=== PATIENT | female | born 1945 | race Caucasian/White ===

== ENCOUNTER → 2016-06-15 | Outpatient (CLI) | payer MEDICARE, OTHER ==
[~2016-06-15] MED LIST: BRINTELLIX20 PO; CALCIUM 600600 M2 PO; IRON325 M2 PO; LIPITOR20 MG PO; MACROBID 1100 MG/CAP PO; MULTIPLE VITAMI1 CAP PO; PERCOCET 325 MG1 TA2 PO; PRAVACHOL 20MG20 MG PO; PROVIGIL200 MG PO; REMERON 15M15 MG/TA1 PO; SENNA1 TAB PO; THERACRAN650 MG PO; WELLBUTRIN XL300 M1 PO; ZOCOR 20MG20 MG PO; ZOLOFT 100MG100 MG PO
== END ==
LOC: MC.RAD 09:47
DX: Z12.31 Encounter for screening mammogram for malignant neoplasm of breast (principal); Z80.3 Family history of malignant neoplasm of breast

== ENCOUNTER → 2016-06-16 | Outpatient (CLI) | payer MEDICARE, OTHER ==
[2016-06-16 08:51] LABS: BASO # 0.1 (0.0-0.2); BASO % 0.8 % (0.0-2.0); EOS # 0.1 (0.0-0.7); EOS % 1.8 % (0-4.0); GRAN # 6.2 (1.4-6.5); GRAN % 77.5 % (42.2-75.2); HEMATOCRIT 41.2 % (37.0-47.0); HEMOGLOBIN 13.6 g/dl (12.5-16.0); LYMPH % 11.9 % (20.0-51.0); MEAN CELL VOLUME 94 fl (80.0-100.0); MEAN CORPUSCULAR HEMOGLOBIN 31 pg (27.0-31.0); MEAN CORPUSCULAR HGB CONC 33 g/dl (33.0-37.0); MEAN PLATELET VOLUME 10.4 fl (7.4-10.4); MONO # 0.6 (0.1-0.6); MONO % 7.7 % (1.7-9.3); PLATELET COUNT 382 K/mm3 (130-400); RED BLOOD COUNT 4.37 M/mm3 (4.10-5.30); REDCELL DISTRIBUTION WIDTH-CV 12.8 % (11.5-14.5)
[2016-06-16 09:29] LABS: ADJUSTED CALCIUM 9.4 mg/dL (8.4-10.2); ALBUMIN 4.4 gm/dL (3.5-5.0); BILIRUBIN,TOTAL 0.9 mg/dL (0.0-1.0); CALCIUM 9.7 mg/dL (8.4-10.2); CREATININE, serum 0.56 mg/dL (0.52-1.25); POTASSIUM 4.8 mmol/L (3.4-5.0); TOTAL PROTEIN 7.8 gm/dL (6.4-8.2)
[2016-06-16 09:59] LABS: THYROID STIMULATING HORMONE 1.31 uIU/mL (0.465-4.680)
[2016-06-16 14:41] LABS: PH 6 (5-8); SQUAMOUS EPITHELIAL None Seen /hpf; URINE APPEARANCE Clear; URINE BACTERIA None Seen /hpf; URINE BILIRUBIN Negative (NEGATIVE); URINE BLOOD 1+ (NEGATIVE); URINE COLOR Straw; URINE GLUCOSE Negative (NEGATIVE); URINE KETONE Negative (NEGATIVE); URINE RBC 0-2 /hpf; URINE UROBILINOGEN Negative (NEGATIVE); URINE WBC 0-2 /hpf
== END ==
LOC: COL.LAB 08:25
PROVIDERS: Internal Medicine
DX: Z11.59 Encounter for screening for other viral diseases (principal); R73.01 Impaired fasting glucose; F33.9 Major depressive disorder, recurrent, unspecified; E78.2 Mixed hyperlipidemia

== ENCOUNTER → 2016-06-24 | Outpatient (CLI) | payer MEDICARE, OTHER | LOC: BHSO 15:11 | DX: F41.1 Generalized anxiety disorder (principal) ==

== ENCOUNTER 2016-10-07 14:00 | Outpatient (RCR) | payer MEDICARE, OTHER | END 2016-10-10 | disposition still patient (30) | LOC: WSPT | DX: M54.5 Low back pain (principal); M25.511 Pain in right shoulder | CPT/HCPCS: G8984-GP; G8985-GP ==

== ENCOUNTER 2016-10-21 09:15 | Outpatient (RCR) | payer MEDICARE, OTHER | END 2016-10-21 17:06 | disposition still patient (30) | LOC: WSC 09:15 → WSPT 11:00 → WSC 17:06 | DX: M54.5 Low back pain (principal); M25.511 Pain in right shoulder; Z74.09 Other reduced mobility | CPT/HCPCS: G8984-GP; G8985-GP; G8986-GP ==

== ENCOUNTER → 2016-11-11 | Outpatient (REF) | LOC: WSOH 15:50 | DX: Z01.89 Encounter for other specified special examinations (principal) ==

== ENCOUNTER → 2016-12-14 | Outpatient (REF) | LOC: WSOH 16:26 | DX: Z02.89 Encounter for other administrative examinations (principal) ==

== ENCOUNTER → 2017-02-09 | Outpatient (CLI) | payer MEDICARE, OTHER ==
[2017-02-09 14:15] LABS: BASO # 0.1 (0.0-0.2); BASO % 0.7 % (0.0-2.0); EOS # 0.1 (0.0-0.7); EOS % 1.7 % (0-4.0); GRAN # 5.2 (1.4-6.5); GRAN % 74.6 % (42.2-75.2); HEMATOCRIT 40.9 % (37.0-47.0); HEMOGLOBIN 13.5 g/dl (12.5-16.0); LYMPH # 1.2 (1.2-3.4); LYMPH % 17.3 % (20.0-51.0); MEAN CELL VOLUME 94 fl (80.0-100.0); MEAN CORPUSCULAR HEMOGLOBIN 31 pg (27.0-31.0); MEAN CORPUSCULAR HGB CONC 33 g/dl (33.0-37.0); MEAN PLATELET VOLUME 10.3 fl (7.4-10.4); MONO # 0.4 (0.1-0.6); MONO % 5.6 % (1.7-9.3); PLATELET COUNT 271 K/mm3 (130-400); RED BLOOD COUNT 4.34 M/mm3 (4.10-5.30); WHITE BLOOD COUNT 6.9 K/mm3 (4.8-10.8)
[2017-02-09 14:26] LABS: ADJUSTED CALCIUM 9.3 mg/dL (8.4-10.2); ALBUMIN 4.2 gm/dL (3.5-5.0); BILIRUBIN,TOTAL 0.3 mg/dL (0.0-1.0); CALCIUM 9.5 mg/dL (8.4-10.2); CREATININE, serum 0.7 mg/dL (0.52-1.25); POTASSIUM 4.2 mmol/L (3.4-5.0); TOTAL PROTEIN 7.3 gm/dL (6.4-8.2)
== END ==
LOC: COL.RAD 13:05
PROVIDERS: Internal Medicine
DX: R10.30 Lower abdominal pain, unspecified (principal)

== ENCOUNTER 2017-05-23 08:29 | Day surgery (SDC) | payer MEDICARE, OTHER ==
[~2017-05-23] VITALS: Ht 170.2 cm; Wt 57.7 kg
[~2017-05-23 08:29] MED LIST changes: -IRON325 M2 PO; +NATURAL IRON65 MG PO
[2017-05-23] MEDS ORDERED: CALCIUM CARBON650 M2 PO (08:58)
[2017-05-23] MEDS ORDERED: MULTI VITAMINS1 TAB PO (08:58)
[2017-05-23 09:07] VITALS: BP 140/87; PULSE 70; TEMP 98.4
[2017-05-23 11:05] VITALS: BP 128/79; PULSE 69
[2017-05-23 11:20] VITALS: BP 137/90; PULSE 68
[2017-05-23 11:35] VITALS: BP 154/82; PULSE 71
[2017-05-23 11:50] VITALS: BP 138/77; PULSE 73
== END 2017-05-23 12:15 | disposition home or self-care (01) ==
LOC: SDCO 08:29
DX: D12.3 Benign neoplasm of transverse colon (principal); K57.30 Diverticulosis of large intestine without perforation or abscess without bleeding; K44.9 Diaphragmatic hernia without obstruction or gangrene; K29.30 Chronic superficial gastritis without bleeding; E78.00 Pure hypercholesterolemia, unspecified; Z90.710 Acquired absence of both cervix and uterus; Z91.041 Radiographic dye allergy status; Z80.3 Family history of malignant neoplasm of breast
CPT/HCPCS: OP; J2250; J2405; J3010; J7030

== ENCOUNTER → 2017-06-28 | Outpatient (CLI) | payer MEDICARE, OTHER ==
[~2017-06-28] MED LIST changes: +CALCIUM CARBON650 M2 PO; +MULTI VITAMINS1 TAB PO
[2017-06-28 08:33] LABS: COLLECTION METHOD CLEAN CATCH
[2017-06-28 08:50] LABS: BASO # 0.1 (0.0-0.2); BASO % 0.7 % (0.0-2.0); EOS # 0.1 (0.0-0.7); EOS % 1.5 % (0-4.0); GRAN # 7.5 (1.4-6.5); GRAN % 79.4 % (42.2-75.2); HEMATOCRIT 41.4 % (37.0-47.0); HEMOGLOBIN 13.7 g/dl (12.5-16.0); LYMPH # 1.1 (1.2-3.4); LYMPH % 11.6 % (20.0-51.0); MEAN CELL VOLUME 92 fl (80.0-100.0); MEAN CORPUSCULAR HEMOGLOBIN 31 pg (27.0-31.0); MEAN CORPUSCULAR HGB CONC 33 g/dl (33.0-37.0); MEAN PLATELET VOLUME 10.3 fl (7.4-10.4); MONO # 0.6 (0.1-0.6); MONO % 6.4 % (1.7-9.3); PLATELET COUNT 353 K/mm3 (130-400); RED BLOOD COUNT 4.49 M/mm3 (4.10-5.30); REDCELL DISTRIBUTION WIDTH-CV 13.3 % (11.5-14.5)
[2017-06-28 09:02] LABS: MUCOUS Present /lpf; PH 5 (5-8); SQUAMOUS EPITHELIAL None Seen /hpf; URINE APPEARANCE Cloudy; URINE BACTERIA None Seen /hpf; URINE BILIRUBIN Negative (NEGATIVE); URINE BLOOD 3+ (NEGATIVE); URINE COLOR Yellow; URINE GLUCOSE Negative (NEGATIVE); URINE KETONE Negative (NEGATIVE); URINE LEUKOCYTE ESTERASE 3+ (NEGATIVE); URINE NITRATE Negative (NEGATIVE); URINE PROTEIN(semi-quant) 2+ (NEGATIVE); URINE RBC >50 /hpf; URINE UROBILINOGEN Negative (NEGATIVE)
[2017-06-28 09:06] LABS: ALBUMIN 4.8 gm/dL (3.5-5.0); BILIRUBIN,TOTAL 0.4 mg/dL (0.0-1.0); CALCIUM 9.8 mg/dL (8.4-10.2); CHOLESTEROL RISK RATIO 3.4; CREATININE, serum 0.64 mg/dL (0.52-1.25); POTASSIUM 4.6 mmol/L (3.4-5.0); TOTAL PROTEIN 7.7 gm/dL (6.4-8.2)
[2017-06-28 09:35] LABS: THYROID STIMULATING HORMONE 1.96 uIU/mL (0.465-4.680)
== END ==
LOC: COL.LAB 08:09
PROVIDERS: Internal Medicine
DX: R73.01 Impaired fasting glucose (principal); F33.9 Major depressive disorder, recurrent, unspecified; E78.2 Mixed hyperlipidemia

== ENCOUNTER 2017-07-14 05:45 | Day surgery (SDC) | payer MEDICARE, OTHER ==
[~2017-07-14] VITALS: Ht 170.2 cm; Wt 58.5 kg
[2017-07-14] VITALS (9 sets, daily range): BP systolic 101–135; BP diastolic 54–80; PULSE 69–84; TEMP 97.8–98
[2017-07-14] MEDS ORDERED: ROXICODONE 55 MG/TAB PO (12:49)
[2017-07-14] MEDS ORDERED: TYLENOL 500MG500 MG PO (12:49)
== END 2017-07-14 15:25 | disposition home or self-care (01) ==
LOC: SDCO 05:45
DX: K40.90 Unilateral inguinal hernia, without obstruction or gangrene, not specified as recurrent (principal); K41.90 Unilateral femoral hernia, without obstruction or gangrene, not specified as recurrent; Z91.041 Radiographic dye allergy status; M19.90 Unspecified osteoarthritis, unspecified site; F32.9 Major depressive disorder, single episode, unspecified; E78.5 Hyperlipidemia, unspecified
CPT/HCPCS: A4314; C1781; J0690; J1100; J1885; J2270; J2405; J2704; J2710; J3010; J7120

== ENCOUNTER → 2017-08-10 | Outpatient (CLI) | payer MEDICARE, OTHER ==
[~2017-08-10] MED LIST changes: +ROXICODONE 55 MG/TAB PO; +TYLENOL 500MG500 MG PO
== END ==
LOC: MC.RAD 08-01 13:40
DX: Z12.31 Encounter for screening mammogram for malignant neoplasm of breast (principal)

== ENCOUNTER → 2017-08-15 | Outpatient (CLI) | payer MEDICARE, OTHER | LOC: BHSO 15:02 | DX: F33.42 Major depressive disorder, recurrent, in full remission (principal) | CPT/HCPCS: G0463 ==

== ENCOUNTER 2017-08-17 09:00 | Outpatient (RCR) | payer MEDICARE, OTHER | END 2017-08-22 | disposition home or self-care (01) | LOC: WSPT | DX: M25.511 Pain in right shoulder (principal) | CPT/HCPCS: G8984-GP; G8985-GP ==

== ENCOUNTER → 2017-08-30 | Outpatient (CLI) | payer OTHER | LOC: COL.RAD 13:06 | DX: S20.20XA Contusion of thorax, unspecified, initial encounter (principal) ==

== ENCOUNTER 2017-10-05 08:00 | Outpatient (RCR) | payer MEDICARE, OTHER | END 2017-10-06 09:08 | disposition home or self-care (01) | LOC: WSPT 08:00 | DX: M25.511 Pain in right shoulder (principal); M25.611 Stiffness of right shoulder, not elsewhere classified; V49.9XXD Car occupant (driver) (passenger) injured in unspecified traffic accident, subsequent encounter | CPT/HCPCS: G8984-GP; G8985-GP ==

== ENCOUNTER → 2017-10-27 | Outpatient (CLI) | payer MEDICARE, OTHER | LOC: COL.RAD 07:30 | DX: M19.011 Primary osteoarthritis, right shoulder (principal); M67.211 Synovial hypertrophy, not elsewhere classified, right shoulder; M75.111 Incomplete rotator cuff tear or rupture of right shoulder, not specified as traumatic; M75.01 Adhesive capsulitis of right shoulder ==

== ENCOUNTER → 2017-12-06 | Outpatient (CLI) | payer MEDICARE, OTHER ==
[2017-12-06 09:10] LABS: HEMATOCRIT 39.4 % (37.0-47.0); MEAN CELL VOLUME 90 fl (80.0-100.0); MEAN CORPUSCULAR HEMOGLOBIN 30 pg (27.0-31.0); MEAN CORPUSCULAR HGB CONC 33 g/dl (33.0-37.0); MEAN PLATELET VOLUME 10.5 fl (7.4-10.4); PLATELET COUNT 358 K/mm3 (130-400); RED BLOOD COUNT 4.38 M/mm3 (4.10-5.30); REDCELL DISTRIBUTION WIDTH-CV 13.4 % (11.5-14.5)
[2017-12-06 09:17] LABS: ALBUMIN 4.3 gm/dL (3.5-5.0); BILIRUBIN,TOTAL 0.3 mg/dL (0.0-1.0); CALCIUM 9.7 mg/dL (8.4-10.2); CREATININE, serum 0.52 mg/dL (0.52-1.25); POTASSIUM 4.7 mmol/L (3.4-5.0); TOTAL PROTEIN 7.7 gm/dL (6.4-8.2)
[2017-12-06 10:16] LABS: COLLECTION METHOD CLEAN CATCH
[2017-12-06 10:55] LABS: MUCOUS Present /lpf; PH 6 (5-8); SQUAMOUS EPITHELIAL None Seen /hpf; URINE APPEARANCE Hazy; URINE BACTERIA None Seen /hpf; URINE BILIRUBIN Negative (NEGATIVE); URINE BLOOD Negative (NEGATIVE); URINE COLOR Yellow; URINE GLUCOSE Negative (NEGATIVE); URINE KETONE Negative (NEGATIVE); URINE LEUKOCYTE ESTERASE Negative (NEGATIVE); URINE NITRATE Negative (NEGATIVE); URINE PROTEIN(semi-quant) Negative (NEGATIVE); URINE UROBILINOGEN Negative (NEGATIVE)
[2017-12-06 12:17] LABS: PROTHROMBIN TIME 11.3 SECONDS (9.7-12.8)
== END ==
LOC: COL.LAB 08:30
PROVIDERS: Internal Medicine
DX: Z01.818 Encounter for other preprocedural examination (principal); M79.601 Pain in right arm

== ENCOUNTER → 2017-12-20 | Outpatient (CLI) | payer MEDICARE, OTHER ==
[2017-12-20 12:06] LABS: HIV 1/2 Antibodies Non-Reactive; HIV-1p24 Antigen Non-Reactive
== END ==
LOC: COL.LAB 09:33
PROVIDERS: Orthopaedic Surgery
DX: Z01.812 Encounter for preprocedural laboratory examination (principal); M19.011 Primary osteoarthritis, right shoulder

== ENCOUNTER 2017-12-21 10:10 | Outpatient (RCR) | payer MEDICARE, OTHER ==
[2017-12-24] MEDS ORDERED: FOLIC ACID 40400 MCG PO (16:06)
[2017-12-24] MEDS ORDERED: VITAMIN C500 MG PO (16:06)
[2017-12-24] MEDS ORDERED: FERROUS SU325 MG/TAB PO (16:07)
[2017-12-28] MEDS ORDERED: NORCO 325 MG-7.1 TAB PO (08:08)
== END 2018-01-08 13:26 | disposition home or self-care (01) ==
LOC: WSC 10:10
DX: Z01.818 Encounter for other preprocedural examination (principal); M19.011 Primary osteoarthritis, right shoulder

== ENCOUNTER → 2018-02-13 | Outpatient (CLI) | payer MEDICARE, OTHER ==
[~2018-02-13] MED LIST changes: +FERROUS SU325 MG/TAB PO; +FOLIC ACID 40400 MCG PO; +NORCO 325 MG-7.1 TAB PO; +VITAMIN C500 MG PO
== END ==
LOC: BHSO 15:40
DX: F33.42 Major depressive disorder, recurrent, in full remission (principal)
CPT/HCPCS: G0463

== ENCOUNTER 2018-03-28 10:00 | Outpatient (RCR) | payer MEDICARE, OTHER | END 2018-03-29 | disposition home or self-care (01) | LOC: WSPT | DX: Z47.1 Aftercare following joint replacement surgery (principal); Z96.611 Presence of right artificial shoulder joint | CPT/HCPCS: G8984-GP; G8985-GP ==

== ENCOUNTER → 2018-05-08 | Outpatient (CLI) | payer MEDICARE, OTHER | LOC: BHSO 15:28 | DX: F41.1 Generalized anxiety disorder (principal) | CPT/HCPCS: G0463 ==

== ENCOUNTER → 2018-06-05 | Outpatient (CLI) | payer MEDICARE, OTHER | LOC: BHSO 15:20 | DX: F33.41 Major depressive disorder, recurrent, in partial remission (principal) | CPT/HCPCS: G0463 ==

== ENCOUNTER 2018-06-27 09:30 | Outpatient (RCR) | payer MEDICARE, OTHER | END 2018-06-28 | disposition home or self-care (01) | LOC: WSPT | DX: Z47.1 Aftercare following joint replacement surgery (principal); Z96.611 Presence of right artificial shoulder joint; S83.411D Sprain of medial collateral ligament of right knee, subsequent encounter; S72.431D Displaced fracture of medial condyle of right femur, subsequent encounter for closed fracture with routine healing; M17.11 Unilateral primary osteoarthritis, right knee; S80.11XD Contusion of right lower leg, subsequent encounter; W19.XXXD Unspecified fall, subsequent encounter ==

== ENCOUNTER 2018-07-01 08:00 | Outpatient (RCR) | payer MEDICARE, OTHER | END 2018-12-23 | disposition still patient (30) | LOC: WSPT | DX: Z96.611 Presence of right artificial shoulder joint (principal) ==

== ENCOUNTER → 2018-07-16 | Outpatient (CLI) | payer MEDICARE, OTHER ==
[2018-07-16 09:11] LABS: COLLECTION METHOD CLEAN CATCH
[2018-07-16 09:20] LABS: BASO % 0.4 % (0.0-2.0); EOS # 0.1 (0.0-0.7); EOS % 1.3 % (0-4.0); GRAN # 7.9 (1.4-6.5); GRAN % 82.3 % (42.2-75.2); HEMATOCRIT 47.2 % (37.0-47.0); HEMOGLOBIN 15.5 g/dl (12.5-16.0); LYMPH % 10.8 % (20.0-51.0); MEAN CELL VOLUME 97 fl (80.0-100.0); MEAN CORPUSCULAR HEMOGLOBIN 32 pg (27.0-31.0); MEAN CORPUSCULAR HGB CONC 33 g/dl (33.0-37.0); MEAN PLATELET VOLUME 9.6 fl (7.4-10.4); MONO # 0.5 (0.1-0.6); MONO % 4.7 % (1.7-9.3); PLATELET COUNT 359 K/mm3 (130-400); REDCELL DISTRIBUTION WIDTH-CV 12.5 % (11.5-14.5)
[2018-07-16 09:27] LABS: RED BLOOD COUNT 4.86 M/mm3 (4.10-5.30)
[2018-07-16 09:29] LABS: MUCOUS Present /lpf; PH 6 (5-8); SQUAMOUS EPITHELIAL 0-2 /hpf; URINE APPEARANCE Clear; URINE BACTERIA None Seen /hpf; URINE BILIRUBIN Negative (NEGATIVE); URINE BLOOD Negative (NEGATIVE); URINE COLOR Yellow; URINE GLUCOSE Negative (NEGATIVE); URINE KETONE Negative (NEGATIVE); URINE LEUKOCYTE ESTERASE Negative (NEGATIVE); URINE NITRATE Negative (NEGATIVE); URINE PROTEIN(semi-quant) Negative (NEGATIVE); URINE UROBILINOGEN Negative (NEGATIVE)
[2018-07-16 09:31] LABS: ALBUMIN 4.4 gm/dL (3.5-5.0); BILIRUBIN,TOTAL 0.4 mg/dL (0.0-1.0); CALCIUM 9.8 mg/dL (8.4-10.2); CHOLESTEROL RISK RATIO 4.2; CREATININE, serum 0.6 mg/dL (0.52-1.25); POTASSIUM 4.9 mmol/L (3.4-5.0); TOTAL PROTEIN 7.7 gm/dL (6.4-8.2)
[2018-07-16 10:00] LABS: THYROID STIMULATING HORMONE 1.35 uIU/mL (0.465-4.680)
== END ==
LOC: COL.LAB 08:32
PROVIDERS: Internal Medicine
DX: E78.2 Mixed hyperlipidemia (principal); F33.41 Major depressive disorder, recurrent, in partial remission; M19.011 Primary osteoarthritis, right shoulder; M54.31 Sciatica, right side

== ENCOUNTER → 2018-07-18 | Outpatient (CLI) | payer MEDICARE, OTHER | LOC: BHSO 15:00 | DX: F33.1 Major depressive disorder, recurrent, moderate (principal) | CPT/HCPCS: G0463 ==

== ENCOUNTER → 2018-07-20 | Outpatient (CLI) | payer MEDICARE, OTHER | LOC: COL.LAB 12:18 | DX: R73.01 Impaired fasting glucose (principal) ==

== ENCOUNTER → 2018-08-03 | Outpatient (CLI) | payer MEDICARE, OTHER | LOC: BHSO 15:46 | DX: F33.41 Major depressive disorder, recurrent, in partial remission (principal) | CPT/HCPCS: G0463 ==

== ENCOUNTER → 2018-08-31 | Outpatient (CLI) | payer MEDICARE, OTHER | LOC: BHSO 15:41 | DX: F33.41 Major depressive disorder, recurrent, in partial remission (principal) | CPT/HCPCS: G0463 ==

== ENCOUNTER → 2018-10-05 | Outpatient (CLI) | payer MEDICARE, OTHER | LOC: BHSO 15:35 | DX: F33.41 Major depressive disorder, recurrent, in partial remission (principal) | CPT/HCPCS: G0463 ==

== ENCOUNTER → 2018-11-05 | Outpatient (CLI) | payer MEDICARE, OTHER | LOC: BHSO 14:37 | DX: F33.41 Major depressive disorder, recurrent, in partial remission (principal) | CPT/HCPCS: G0463 ==

== ENCOUNTER → 2018-12-28 | Outpatient (CLI) | payer MEDICARE, OTHER | LOC: BHSO 15:15 | DX: F33.41 Major depressive disorder, recurrent, in partial remission (principal) | CPT/HCPCS: G0463 ==

== ENCOUNTER → 2019-03-29 | Outpatient (CLI) | payer MEDICARE, OTHER | LOC: BHSO 14:02 | DX: F41.1 Generalized anxiety disorder (principal) | CPT/HCPCS: G0463 ==

== ENCOUNTER → 2019-06-07 | Outpatient (CLI) | payer MEDICARE, OTHER | LOC: COL.RAD 12:57 | DX: M19.012 Primary osteoarthritis, left shoulder (principal) | CPT/HCPCS: J3301; Q9967 ==

== ENCOUNTER → 2019-06-28 | Outpatient (CLI) | payer MEDICARE, OTHER | LOC: BHSO 13:56 | DX: F33.41 Major depressive disorder, recurrent, in partial remission (principal) | CPT/HCPCS: G0463 ==

== ENCOUNTER → 2019-08-30 | Outpatient (CLI) | payer MEDICARE, OTHER | LOC: COL.RAD 13:00 | DX: M25.512 Pain in left shoulder (principal) | CPT/HCPCS: J3301; Q9967 ==

== ENCOUNTER → 2019-10-10 | Outpatient (CLI) | payer MEDICARE, OTHER | LOC: BHSO 14:37 | DX: F33.1 Major depressive disorder, recurrent, moderate (principal) | CPT/HCPCS: G0463 ==

== ENCOUNTER → 2019-10-28 | Outpatient (CLI) | payer MEDICARE, OTHER | LOC: MC.RAD 14:45 | DX: Z12.31 Encounter for screening mammogram for malignant neoplasm of breast (principal); Z78.0 Asymptomatic menopausal state ==

== ENCOUNTER → 2019-11-29 | Outpatient (CLI) | payer MEDICARE, OTHER | LOC: BHSO 13:49 | DX: F33.1 Major depressive disorder, recurrent, moderate (principal) | CPT/HCPCS: G0463 ==

== ENCOUNTER 2019-12-20 10:02 | Inpatient (IN) | payer MEDICARE, OTHER ==
[~2019-12-20] VITALS: Ht 167.6 cm; Wt 54.5 kg
[~2019-12-20 10:02] MED LIST changes: +HONEY BEARS MU1 EACH PO; -MULTI VITAMINS1 TAB PO
[2020-01-16] VITALS (12 sets, daily range): BP systolic 107–135; BP diastolic 51–78; PULSE 84–108; TEMP 97.2–98.7
[2020-01-16] MEDS ORDERED: REXULTI4 MG PO (07:44)
[2020-01-16] MEDS ORDERED: PAMELOR75 MG PO (07:44)
[2020-01-17 03:41] VITALS: BP 115/62; PULSE 89; TEMP 98.5
[2020-01-17 06:36] LABS: HEMATOCRIT 38.7 % (37.0-47.0); HEMOGLOBIN 12.6 g/dl (12.5-16.0)
[2020-01-17 08:57] VITALS: BP 138/77; PULSE 108; TEMP 97.9
[2020-01-17 11:18] VITALS: BP 112/72; PULSE 99; TEMP 97.8
== END 2020-01-17 12:36 | disposition home or self-care (01) | DRG 483 ==
LOC: SURG 01-16 06:47 → JCC 01-16 09:45 → SURG 01-17 12:36
PROVIDERS: ADMIT Orthopaedic Surgery Sports Medicine
PROC: 0RRK0JZ Replacement of Left Shoulder Joint with Synthetic Substitute, Open Approach (ICD-10-PCS; principal; 2020-01-16 09:45)
DX: M19.012 Primary osteoarthritis, left shoulder (principal)
CPT/HCPCS: A9284; C1776; J0171; J0690; J1100; J2704; J2795; J7120

== ENCOUNTER → 2019-12-26 | Outpatient (CLI) | payer MEDICARE, OTHER ==
[~2019-12-26] MED LIST changes: -HONEY BEARS MU1 EACH PO; +MULTI VITAMINS1 TAB PO
[2019-12-26 11:37] LABS: BASO % 0.3 % (0.0-2.0); EOS % 0.5 % (0-4.0); GRAN % 79.5 % (42.2-75.2); HEMOGLOBIN 14.5 g/dl (12.5-16.0); LYMPH # 1.1 (1.2-3.4); LYMPH % 12.2 % (20.0-51.0); MEAN CELL VOLUME 98 fl (80.0-100.0); MEAN CORPUSCULAR HEMOGLOBIN 32 pg (27.0-31.0); MEAN CORPUSCULAR HGB CONC 33 g/dl (33.0-37.0); MEAN PLATELET VOLUME 10.8 fl (7.4-10.4); MONO # 0.6 (0.1-0.6); MONO % 7.2 % (1.7-9.3); PLATELET COUNT 242 K/mm3 (130-400); RED BLOOD COUNT 4.49 M/mm3 (4.10-5.30)
[2019-12-26 11:44] LABS: MUCOUS Present /lpf; PH 7 (5-8); SQUAMOUS EPITHELIAL None Seen /hpf; URINE APPEARANCE Hazy; URINE BACTERIA None Seen /hpf; URINE BILIRUBIN Negative (NEGATIVE); URINE BLOOD Negative (NEGATIVE); URINE COLOR Yellow; URINE GLUCOSE Negative (NEGATIVE); URINE KETONE Negative (NEGATIVE); URINE LEUKOCYTE ESTERASE Negative (NEGATIVE); URINE NITRATE Negative (NEGATIVE); URINE PROTEIN(semi-quant) Negative (NEGATIVE); URINE UROBILINOGEN Negative (NEGATIVE)
[2019-12-26 11:45] LABS: ALBUMIN 4.4 gm/dL (3.5-5.0); BILIRUBIN,TOTAL 0.5 mg/dL (0.0-1.0); CALCIUM 10.1 mg/dL (8.4-10.2); CREATININE, serum 0.67 (0.52-1.25); POTASSIUM 5.1 mmol/L (3.4-5.0); TOTAL PROTEIN 7.4 gm/dL (6.4-8.2)
[2019-12-26 11:51] LABS: PROTHROMBIN TIME 11.7 SECONDS (9.7-12.8)
[2019-12-26 12:23] LABS: COLLECTION METHOD CLEAN CATCH
== END ==
LOC: COL.LAB 10:48 → COL.RAD 10:56
PROVIDERS: Internal Medicine
DX: Z01.818 Encounter for other preprocedural examination (principal); M25.512 Pain in left shoulder

== ENCOUNTER → 2020-01-02 | Outpatient (CLI) | payer MEDICARE, OTHER | LOC: BHSO 15:34 | DX: F33.1 Major depressive disorder, recurrent, moderate (principal) | CPT/HCPCS: G0463 ==

== ENCOUNTER 2020-01-06 09:57 | Outpatient (RCR) | payer MEDICARE, OTHER ==
[~2020-01-06 09:57] MED LIST changes: +HONEY BEARS MU1 EACH PO; -MULTI VITAMINS1 TAB PO
[2020-01-16] MEDS ORDERED: REXULTI4 MG PO (07:44)
[2020-01-16] MEDS ORDERED: PAMELOR75 MG PO (07:44)
== END 2020-01-20 10:50 | disposition home or self-care (01) ==
LOC: WSPT 09:57
DX: Z96.612 Presence of left artificial shoulder joint (principal)

== ENCOUNTER 2020-04-06 10:45 | Outpatient (RCR) | payer MEDICARE, OTHER ==
[~2020-04-06 10:45] MED LIST changes: +PAMELOR75 MG PO; +REXULTI4 MG PO
== END 2020-04-19 | disposition home or self-care (01) ==
LOC: WSPT
DX: Z01.818 Encounter for other preprocedural examination (principal); Z96.612 Presence of left artificial shoulder joint

== ENCOUNTER 2020-04-20 08:00 | Outpatient (RCR) | payer MEDICARE, OTHER | END 2020-05-11 14:36 | disposition home or self-care (01) | LOC: WSPT 08:00 | DX: Z01.818 Encounter for other preprocedural examination (principal) ==

== ENCOUNTER → 2020-07-23 | Outpatient (CLI) | payer MEDICARE, OTHER ==
[2020-07-23 10:24] LABS: COLLECTION METHOD CLEAN CATCH
[2020-07-23 10:30] LABS: BASO % 0.4 % (0.0-2.0); EOS # 0.1 (0.0-0.7); EOS % 0.6 % (0-4.0); GRAN # 8.4 (1.4-6.5); GRAN % 83.3 % (42.2-75.2); HEMATOCRIT 45.5 % (37.0-47.0); HEMOGLOBIN 14.9 g/dl (12.5-16.0); LYMPH % 10.1 % (20.0-51.0); MEAN CELL VOLUME 98 fl (80.0-100.0); MEAN CORPUSCULAR HEMOGLOBIN 32 pg (27.0-31.0); MEAN CORPUSCULAR HGB CONC 33 g/dl (33.0-37.0); MEAN PLATELET VOLUME 10.2 fl (7.4-10.4); MONO # 0.5 (0.1-0.6); MONO % 5.1 % (1.7-9.3); PLATELET COUNT 298 K/mm3 (130-400); RED BLOOD COUNT 4.66 M/mm3 (4.10-5.30); REDCELL DISTRIBUTION WIDTH-CV 12.9 % (11.5-14.5)
[2020-07-23 10:32] LABS: MUCOUS Present /lpf; PH 7 (5-8); SQUAMOUS EPITHELIAL None Seen /hpf; URINE APPEARANCE Clear; URINE BACTERIA None Seen /hpf; URINE BILIRUBIN Negative (NEGATIVE); URINE BLOOD Negative (NEGATIVE); URINE COLOR Yellow; URINE GLUCOSE Negative (NEGATIVE); URINE KETONE Negative (NEGATIVE); URINE LEUKOCYTE ESTERASE Negative (NEGATIVE); URINE NITRATE Negative (NEGATIVE); URINE PROTEIN(semi-quant) Negative (NEGATIVE); URINE UROBILINOGEN Negative (NEGATIVE)
[2020-07-23 10:40] LABS: ALBUMIN 4.3 gm/dL (3.5-5.0); BILIRUBIN,TOTAL 0.4 mg/dL (0.0-1.0); CALCIUM 9.4 mg/dL (8.4-10.2); CHOLESTEROL RISK RATIO 4.1; CREATININE, serum 0.58 (0.52-1.25); POTASSIUM 4.4 mmol/L (3.4-5.0); TOTAL PROTEIN 7.5 gm/dL (6.4-8.2)
[2020-07-23 11:10] LABS: THYROID STIMULATING HORMONE 1.32 uIU/mL (0.465-4.680)
== END ==
LOC: COL.LAB 08:51
PROVIDERS: Internal Medicine
DX: E78.2 Mixed hyperlipidemia (principal); F33.41 Major depressive disorder, recurrent, in partial remission; R73.01 Impaired fasting glucose

== ENCOUNTER → 2020-11-18 | Outpatient (CLI) | payer MEDICARE, OTHER | LOC: MC.RAD 14:43 | DX: Z12.31 Encounter for screening mammogram for malignant neoplasm of breast (principal) ==

== ENCOUNTER → 2021-06-03 | Outpatient (CLI) | payer MEDICARE, OTHER | LOC: COL.RAD 05-26 11:30 | DX: R91.8 Other nonspecific abnormal finding of lung field (principal) | CPT/HCPCS: Q9967 ==

== ENCOUNTER 2021-08-03 13:03 | Emergency (ER) | payer MEDICARE, OTHER ==
[~2021-08-03] VITALS: Ht 167.6 cm; Wt 53.6 kg
[2021-08-03 13:15] VITALS: TEMP 98.4
[2021-08-03] MEDS ORDERED: NORCO 325 MG-51 TAB PO (16:27)
[2021-08-03 16:51] VITALS: BP 154/91; PULSE 88
== END 2021-08-03 19:40 | disposition home or self-care (01) ==
LOC: COL.ER 13:03
DX: S42.402A Unspecified fracture of lower end of left humerus, initial encounter for closed fracture (principal); S00.83XA Contusion of other part of head, initial encounter; Z98.890 Other specified postprocedural states; W01.198A Fall on same level from slipping, tripping and stumbling with subsequent striking against other object, initial encounter
CPT/HCPCS: J2250; J2270; J2704; J3010

== ENCOUNTER 2021-08-13 10:59 | Day surgery (SDC) | payer MEDICARE, OTHER ==
[2021-08-13] VITALS (10 sets, daily range): BP systolic 83–145; BP diastolic 54–74; PULSE 71–93; TEMP 97.6–98.7
[~2021-08-13] VITALS: Ht 165.1 cm; Wt 61.3 kg
[~2021-08-13 10:59] MED LIST changes: +NORCO 325 MG-51 TAB PO
[2021-08-13] MEDS ORDERED: ADDERALL10 MG PO (13:34)
[2021-08-13] MEDS ORDERED: WELLBUTRIN XL300 M1 PO (13:35)
[2021-08-13] MEDS ORDERED: CALCIUM 600 MG1 EAC2 PO (13:36)
[2021-08-13] MEDS ORDERED: CENTRUM SILVER1 CTB PO (13:37)
[2021-08-13] MEDS ORDERED: NORCO 325 MG-7.1 TAB PO (14:32)
[2021-08-13] MEDS ORDERED: TYLENOL 500MG500 MG PO (14:33)
--- NOTE | 2021-08-13 18:00 | NUR ---
Pt recently arrived to the floor from [facility]. She is alert and oriented although drowsy. pt is very talkative and speech is not completely clear. at bedside. Pt states that she has no pain and cannot move her fingers yet. Scheduled Tylenol given and dinner ordered. Call light within reach
[2021-08-13] MEDS ORDERED: BRINTELLIX20 (18:20)
[2021-08-13] MEDS ORDERED: LAMICTAL 100MG100 MG PO (18:21)
--- NOTE | 2021-08-13 18:42 | NUR ---
Pt having complaints of feeling a little dizzy, lowered head of bed down as it was upright. Pt continues to state that she is not having any pain and cannot move fingers. Dressing to left arm is CDI, ice pack in place.
--- NOTE | 2021-08-13 20:00 | NUR ---
PT IN BED. LEFT ARM IN SLING. REPORTS CONTINUED NUMBNESS TO LEFT ARM AND HAND, WIGGLES FINGERS MINIMALLY. IVF TO RT HAND INFUSING WITHOUT REDNESS OR SWELLING. LEFT HAND SWOLLEN AND BRUISED. HAS BEEN UP TO BATHROOM WITH ASSIST X1 TO VOID. IS ALERT AND ORIENTED X4.
--- NOTE | 2021-08-13 22:00 | NUR ---
PT RESTING IN BED. REPORTS FEELING HAS RETURNED TO FINGERS.
--- NOTE | 2021-08-14 00:15 | NUR ---
PT CRYING, BLOCK TO LEFT ARM HAS WORN OFF. PT HAS PURPLE, SWOLLEN LEFT ARM INTO LEFT HAND. MEDICATED WITH ES TYLENOL AND OXYCODONE 5MG PO. IVF COMPLETE, INT TO RT HAND FLUSHES WELL. PT CALMED AFTER MEDS, WILL RECHECK IN 30MIN.
[2021-08-14 00:41] VITALS: BP 129/74; PULSE 92; TEMP 97.8
--- NOTE | 2021-08-14 00:55 | NUR ---
PT STILL IN PAIN, REPEATED OXYCODONE 5MG PO NOW, ASSISTED TO BATHROOM, VOIDS AND BACK TO BED. WILL RECHECK IN 30MIN.
--- NOTE | 2021-08-14 01:30 | NUR ---
PT IN BED, QUIET, STILL RATING PAIN 10/10 TO LEFT ARM. ICE PACK IN PLACE.
--- NOTE | 2021-08-14 04:00 | NUR ---
PT UP TO BATHROOM WITH ONE ASSIST, REPORTS MILD PAIN TO LEFT ARM.
[2021-08-14 04:36] VITALS: BP 125/62; PULSE 78; TEMP 97.6
--- NOTE | 2021-08-14 04:41 | NUR ---
MEDICATED WITH SCHEDULED IV ANTIBIOTIC. REPORTS GOOD PAIN CONTROL WITH OXYCODONE, DOSE GIVEN AT THIS TIME. ARM REMAINS IN SLING WITH ICE PACK.
--- NOTE | 2021-08-14 07:00 | NUR ---
Pt having complaints of pain, asking for pain medication. Informed her that the soonest I could bring something in would be closer to 8:30. Pt nodded. No other needs, will continue to monitor
--- NOTE | 2021-08-14 08:40 | NUR ---
Pt was having increase in pain, rating it 10/10 and was tearful. Called ortho and received an order for one time toradol which was given as well as the scheduled tylenol. Pt reports that it did help but still rated pain 10/10. Asked her again about it helping which would cause the rating to go down, she then rated it 8/10. PRN Roxicodone given at this time. Pt does have an ice pack on her left arm and sling is in place. Breakfast has been ordered and should be arriving soon. Call light within reach, will continue to monitor
[2021-08-14 09:00] VITALS: BP 126/66; PULSE 84; TEMP 98.6
--- NOTE | 2021-08-14 10:45 | NUR ---
Pt appears to be much more relaxed. She does have a hard time keeping her eyes open and speech is not completly clear. This is baseline from when she arrived to the floor from surgery. Pt did eat all of her breakfast. Encouraged her to sit up on the side of the bed to eat, but she did not want to at that time due to pain. Discussed plan of care as far as the plans for pain management and discharge. Pt was agreeable with this. Discussed discharge this afternoon after lunch.
--- NOTE | 2021-08-14 11:45 | NUR ---
Gave pt PRN Motrin to help stay on top of the pain. Pt was sleeping but did wake easily when I walked in the room. Her left to go and bulk picker prescriptions. Assisted pt to the restroom. She did well and was independent with getting out of bed, to the restroom and back to bed. No additional complaints of pain and no complaints of dizziness.
[2021-08-14 12:30] VITALS: BP 126/64; PULSE 78; TEMP 98
--- NOTE | 2021-08-14 14:06 | NUR ---
Pt continues to do well. Rates pain 7/10, but reports it is much better and that it is tolerable. She gets up and moves well and does not require any assistance. Pt okay with discharge. Reviewed discharge instructions with pt and her . All questions answered at this time. Informed pt to notify nursing when she is ready to be escorted out.
== END 2021-08-14 14:15 | disposition home or self-care (01) ==
LOC: SDCO 10:59 → SURG 17:20 → SDCO 08-14 14:15
DX: S42.362A Displaced segmental fracture of shaft of humerus, left arm, initial encounter for closed fracture (principal); X58.XXXA Exposure to other specified factors, initial encounter; Y93.9 Activity, unspecified; Y92.9 Unspecified place or not applicable
CPT/HCPCS: OP; C1713; J0690; J1170; J1885; J2250; J2704; J2795; J3010; J7120

== ENCOUNTER → 2021-08-23 | Outpatient (CLI) | payer MEDICARE, OTHER ==
[~2021-08-23] MED LIST changes: +ADDERALL10 MG PO; +BRINTELLIX20; +CALCIUM 600 MG1 EAC2 PO; +CENTRUM SILVER1 CTB PO; +LAMICTAL 100MG100 MG PO
[2021-08-23 10:33] LABS: BASO # 0.1 K/mm3 (0.0-0.2); BASO % 1.1 % (0.0-2.0); EOS # 0.2 K/mm3 (0.0-0.7); EOS % 4.2 % (0.0-4.0); GRAN # 3.8 K/mm3 (1.4-6.5); GRAN % 69.5 % (42.2-75.2); HEMOGLOBIN 11.4 g/dl (12.5-16.0); LYMPH # 0.9 K/mm3 (1.2-3.4); LYMPH % 16.3 % (20.0-51.0); MEAN CELL VOLUME 96 fl (80.0-100.0); MEAN CORPUSCULAR HEMOGLOBIN 30 pg (27-31); MEAN CORPUSCULAR HGB CONC 31 g/dl (33.0-37.0); MEAN PLATELET VOLUME 9.3 fl (7.4-10.4); MONO # 0.5 K/mm3 (0.1-0.6); MONO % 8.5 % (1.7-9.3); PLATELET COUNT 484 K/mm3 (130-400); RED BLOOD COUNT 3.81 M/mm3 (4.10-5.30); REDCELL DISTRIBUTION WIDTH-CV 13.7 % (11.5-14.5)
[2021-08-23 10:42] LABS: HEMATOCRIT 36.4 % (37.0-47.0)
[2021-08-23 10:54] LABS: ALBUMIN 3.9 gm/dL (3.4-4.8); BILIRUBIN,TOTAL 0.5 mg/dL (0.2-1.2); CALCIUM 9.8 mg/dL (8.4-10.2); CREATININE, serum 0.65 mg/dL (0.57-1.11); POTASSIUM 4.6 mmol/L (3.5-4.5)
[2021-08-23 11:21] LABS: THYROID STIMULATING HORMONE 1.019 uIU/mL (0.350-4.940)
== END ==
LOC: COL.LAB 09:18
PROVIDERS: Internal Medicine
DX: E78.2 Mixed hyperlipidemia (principal); F33.41 Major depressive disorder, recurrent, in partial remission; R73.01 Impaired fasting glucose

== ENCOUNTER → 2021-09-09 | Outpatient (CLI) | payer MEDICARE, OTHER | LOC: COL.RAD 13:00 | DX: R91.8 Other nonspecific abnormal finding of lung field (principal) | CPT/HCPCS: Q9967 ==

== ENCOUNTER → 2021-09-21 | Outpatient (RCR) | payer MEDICARE, OTHER | END | disposition home or self-care (01) | LOC: PT.GENESIS | DX: S42.362D Displaced segmental fracture of shaft of humerus, left arm, subsequent encounter for fracture with routine healing (principal); X58.XXXD Exposure to other specified factors, subsequent encounter ==

== ENCOUNTER 2021-10-15 14:00 | Outpatient (RCR) | payer MEDICARE, OTHER | END 2021-10-21 | disposition still patient (30) | LOC: WSOT | DX: G56.32 Lesion of radial nerve, left upper limb (principal) ==

== ENCOUNTER → 2021-10-21 | Outpatient (RCR) | payer MEDICARE, OTHER | END | disposition home or self-care (01) | LOC: PT.GENESIS | DX: S42.362D Displaced segmental fracture of shaft of humerus, left arm, subsequent encounter for fracture with routine healing (principal); X58.XXXD Exposure to other specified factors, subsequent encounter ==

== ENCOUNTER 2021-11-17 13:30 | Outpatient (RCR) | payer MEDICARE, OTHER | END 2021-11-21 | disposition home or self-care (01) | LOC: WSOT | DX: G56.32 Lesion of radial nerve, left upper limb (principal) ==

== ENCOUNTER 2021-11-19 14:00 | Outpatient (RCR) | payer MEDICARE, OTHER | END 2021-11-21 | disposition home or self-care (01) | LOC: PT.GENESIS | DX: S42.362D Displaced segmental fracture of shaft of humerus, left arm, subsequent encounter for fracture with routine healing (principal); X58.XXXD Exposure to other specified factors, subsequent encounter ==

== ENCOUNTER → 2021-12-07 | Outpatient (CLI) | payer MEDICARE, OTHER | LOC: MC.RAD 12-01 14:00 | DX: Z12.31 Encounter for screening mammogram for malignant neoplasm of breast (principal) ==

== ENCOUNTER → 2021-12-22 | Outpatient (RCR) | payer MEDICARE, OTHER | END | disposition still patient (30) | LOC: PT.GENESIS | DX: S42.362D Displaced segmental fracture of shaft of humerus, left arm, subsequent encounter for fracture with routine healing (principal); X58.XXXD Exposure to other specified factors, subsequent encounter ==

== ENCOUNTER → 2021-12-22 | Outpatient (RCR) | payer MEDICARE, OTHER | END | disposition home or self-care (01) | LOC: WSOT | DX: G56.32 Lesion of radial nerve, left upper limb (principal) ==

== ENCOUNTER 2022-02-16 10:00 | Outpatient (RCR) | payer MEDICARE, OTHER | END 2022-02-21 | disposition home or self-care (01) | LOC: WSOT | DX: G56.32 Lesion of radial nerve, left upper limb (principal) ==

== ENCOUNTER 2022-07-20 14:30 | Outpatient (RCR) | payer MEDICARE, OTHER ==
[~2022-07-20 14:30] MED LIST changes: +CRUTCHES MC
== END 2022-07-22 | disposition home or self-care (01) ==
LOC: PT.GENESIS
DX: S82.092D Other fracture of left patella, subsequent encounter for closed fracture with routine healing (principal); X58.XXXD Exposure to other specified factors, subsequent encounter

== ENCOUNTER 2022-08-08 14:30 | Outpatient (RCR) | payer MEDICARE, OTHER | END 2022-08-16 13:18 | disposition home or self-care (01) | LOC: PT.GENESIS 14:30 | DX: S82.092D Other fracture of left patella, subsequent encounter for closed fracture with routine healing (principal); W19.XXXD Unspecified fall, subsequent encounter ==

== ENCOUNTER → 2022-08-17 | Outpatient (CLI) | payer MEDICARE, OTHER ==
[2022-08-17 08:03] LABS: BASO # 0.1 K/mm3 (0.0-0.2); EOS # 0.2 K/mm3 (0.0-0.7); EOS % 2.7 % (0.0-4.0); GRAN # 4.3 K/mm3 (1.4-6.5); GRAN % 72.8 % (42.2-75.2); HEMATOCRIT 40.7 % (37.0-47.0); HEMOGLOBIN 13.1 g/dl (12.5-16.0); LYMPH % 16.2 % (20.0-51.0); MEAN CELL VOLUME 93 fl (80.0-100.0); MEAN CORPUSCULAR HEMOGLOBIN 30 pg (27-31); MEAN CORPUSCULAR HGB CONC 32 g/dl (33.0-37.0); MONO # 0.4 K/mm3 (0.1-0.6); MONO % 7.1 % (1.7-9.3); PLATELET COUNT 333 K/mm3 (130-400); RED BLOOD COUNT 4.37 M/mm3 (4.10-5.30); REDCELL DISTRIBUTION WIDTH-CV 13.5 % (11.5-14.5)
[2022-08-17 08:18] LABS: ALBUMIN 3.8 gm/dL (3.4-4.8); BILIRUBIN,TOTAL 0.3 mg/dL (0.2-1.2); CALCIUM 9.8 mg/dL (8.4-10.2); CREATININE, serum 0.75 mg/dL (0.57-1.11); POTASSIUM 4.7 mmol/L (3.5-4.5)
[2022-08-17 08:40] LABS: THYROID STIMULATING HORMONE 1.618 uIU/mL (0.350-4.940)
== END ==
LOC: COL.LAB 07:04
PROVIDERS: Internal Medicine
DX: E78.2 Mixed hyperlipidemia (principal); R73.01 Impaired fasting glucose

== ENCOUNTER → 2023-05-03 | Outpatient (CLI) | payer MEDICARE, OTHER ==
[~2023-05-03] MED LIST changes: +FOSAMAX 70MG TA70 MG PO; +IBU600 MG PO; +MYRBETR50MG PO; +PROBIOTIC BLEN1 EACH PO
== END ==
LOC: MHCPAIN 14:29
DX: M48.061 Spinal stenosis, lumbar region without neurogenic claudication (principal); M47.897 Other spondylosis, lumbosacral region; M54.16 Radiculopathy, lumbar region
CPT/HCPCS: G0463

== ENCOUNTER → 2023-05-18 | Outpatient (CLI) | payer MEDICARE, OTHER | LOC: MHCPAIN 08:09 | DX: M47.817 Spondylosis without myelopathy or radiculopathy, lumbosacral region (principal); M54.50 Low back pain, unspecified | CPT/HCPCS: J0665 ==

== ENCOUNTER → 2023-05-22 | Outpatient (CLI) | payer MEDICARE, OTHER | LOC: MHCPAIN 09:18 | DX: M54.16 Radiculopathy, lumbar region (principal); M48.062 Spinal stenosis, lumbar region with neurogenic claudication; M41.86 Other forms of scoliosis, lumbar region | CPT/HCPCS: G0463 ==

== ENCOUNTER → 2023-08-16 | Outpatient (CLI) | payer MEDICARE, OTHER | LOC: MHCPAIN 09:53 | DX: M48.061 Spinal stenosis, lumbar region without neurogenic claudication (principal); M47.817 Spondylosis without myelopathy or radiculopathy, lumbosacral region | CPT/HCPCS: G0463 ==

== ENCOUNTER → 2024-01-17 | Outpatient (CLI) | payer MEDICARE, OTHER ==
[~2024-01-17] MED LIST changes: -BRINTELLIX20; -CALCIUM 600 MG1 EAC2 PO; +CALCIUM 600-D 61 TAB PO; +CRANBERRY500 M3 PO
== END ==
LOC: MC.RAD 13:45
DX: Z12.31 Encounter for screening mammogram for malignant neoplasm of breast (principal)